=== PATIENT | female | born 1995 | race African-American/Black ===

== ENCOUNTER 2019-03-09 15:52 | Emergency (ER) | payer OTHER ==
[~2019-03-09] VITALS: Ht 160 cm; Wt 59.0 kg
[2019-03-09 16:00] VITALS: BP 105/72
--- NOTE | 2019-03-09 16:08 | PHYS DOC ---
Adult General Chief Complaint Chief Complaint: FOOT INJURY PAIN HPI HPI Patient is a 24-year-old female who scraped the top of her left foot going up some stairs yesterday. She states today she were shoes and the areas little more painful with some surrounding redness. She's been using triple antibiotic cream on it since the time of the injury. No other injuries.[] Review of Systems Review of Systems Constitutional: Denies fever or chills [] Eyes: Denies change in visual acuity, redness, or eye pain [] HENT: Denies nasal congestion or sore throat [] Respiratory: Denies cough or shortness of breath [] Cardiovascular: No additional information not addressed in HPI [] GI: Denies abdominal pain, nausea, vomiting, bloody stools or diarrhea [] : Denies dysuria or hematuria [] Musculoskeletal: Denies back pain or joint pain [] Integument: Abrasion left foot[] Neurologic: Denies headache, focal weakness or sensory changes [] Endocrine: Denies polyuria or polydipsia [] All other systems were reviewed and found to be within normal limits, except as documented in this note. Allergies Allergies Allergies Coded Allergies Type Severity Reaction Last Updated Verified morphine Allergy Unknown 03/09/19 Yes Physical Exam Physical Exam Constitutional: Well developed, well nourished, no acute distress, non-toxic appearance. [] Neck: Normal range of motion, no tenderness, supple, no stridor. [] Cardiovascular:Heart rate regular rhythm, no murmur [] Lungs & Thorax: Bilateral breath sounds clear to auscultation [] Abdomen: Bowel sounds normal, soft, no tenderness, no masses, no pulsatile masses. [] Skin: 2 small abrasions dorsum left foot. [] [] Extremities: No tenderness, no cyanosis, no clubbing, ROM intact, no edema. [] Neurologic: Alert and oriented X 3, normal motor function, normal sensory function, no focal deficits noted. [] Psychologic: Affect normal, judgement normal, mood normal. [] EKG EKG [] Radiology/Procedures Radiology/Procedures [] Course & Med Decision Making Course & Med Decision Making Pertinent Labs and Imaging studies reviewed. (See chart for details) [] Dragon Disclaimer Dragon Disclaimer This electronic medical record was generated, in whole or in part, using a voice recognition dictation system. Departure Departure: Impression: Primary Impression: Abrasion, left foot, initial encounter Disposition: HOME, SELF-CARE Condition: STABLE Referrals: PCP,NO (PCP) Patient Instructions: Abrasions Additional Instructions: Continue to use triple antibiotic ointment as you have been. NICHOL WETZEL DO Mar 09, 2019 16:08
== END 2019-03-09 16:15 | disposition home or self-care (01) ==
LOC: ER 15:53
DX: S90.812A Abrasion, left foot, initial encounter (principal); Z88.5 Allergy status to narcotic agent; X58.XXXA Exposure to other specified factors, initial encounter; Y93.89 Activity, other specified; Y92.89 Other specified places as the place of occurrence of the external cause; Y99.8 Other external cause status
CPT/HCPCS: 99281

== ENCOUNTER 2019-03-19 15:49 | Emergency (ER) | payer SELFPAY ==
[~2019-03-19] VITALS: Ht 160 cm; Wt 55.3 kg
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
[2019-03-19 17:29] VITALS: BP 110/74
[2019-03-19] MEDS ORDERED: CEPH-264 PO (17:36)
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
== END 2019-03-19 17:55 | disposition home or self-care (01) ==
LOC: ER 15:49 → EEVIPCON 15:49 → ER 17:55
DX: S61.211A Laceration without foreign body of left index finger without damage to nail, initial encounter (principal); S40.011A Contusion of right shoulder, initial encounter; S80.212A Abrasion, left knee, initial encounter; Y04.0XXA Assault by unarmed brawl or fight, initial encounter; Y93.89 Activity, other specified; Y92.89 Other specified places as the place of occurrence of the external cause; Y99.8 Other external cause status
CPT/HCPCS: 73030; 73140; 99284

== ENCOUNTER 2019-05-11 09:01 | Emergency (ER) | payer SELFPAY ==
[~2019-05-11] VITALS: Ht 160 cm; Wt 50.8 kg
[~2019-05-11 09:01] MED LIST: CEPH-264 PO
[2019-05-11 09:12] VITALS: BP 106/82
[2019-05-11] MEDS ORDERED: ONDANSETRON 4MG ODT 4TABLET STARTPACK. PO ONE (09:43)
[2019-05-11] MEDS ORDERED: ONDANSETRON ODT 4 MG TAB.RAPDIS PO ONE (09:45)
[2019-05-11] MEDS ORDERED: AZITHROMYCIN 250 MG TABLET. PO ONE (09:45)
[2019-05-11] MEDS ORDERED: cefTRIAXone IM 250 MG VIAL IM ONE (09:45)
[2019-05-11] MEDS ORDERED: PHEN-318 PO (09:48)
[2019-05-11] MEDS ORDERED: CEPH-264 PO (09:48)
--- NOTE | 2019-05-11 09:49 | PHYS DOC ---
Past History Past Medical History: No Pertinent History Past Surgical History: Other Additional Past Surgical Histo: OVARIAN CYST REMOVAL, D&C Smoking: Cigarettes Alcohol Use: None Drug Use: None Adult General Chief Complaint Chief Complaint: PAIN ON URINATION HPI HPI Patient is a 24-year-old female presents with dysuria for the past several days. Increased urgency and frequency. She normally treats similar symptoms with cutting soda from her diet. She has tried this without any improvement. She notes some low back pain. No fever. No sidedness to the low back pain. No nausea or vomiting. Symptoms are moderate in intensity. She also reports that her partner was recently diagnosed with chlamydia and she has not had any treatment herself[] Review of Systems Review of Systems Constitutional: Denies fever or chills [] Eyes: Denies change in visual acuity, redness, or eye pain [] HENT: Denies nasal congestion or sore throat [] Respiratory: Denies cough or shortness of breath [] Cardiovascular: No chest pain or palpitations[] GI: Denies abdominal pain, nausea, vomiting, bloody stools or diarrhea [] : See history of present illness[] Musculoskeletal: Denies back pain or joint pain [] Integument: Denies rash or skin lesions [] Neurologic: Denies headache, focal weakness or sensory changes [] Endocrine: Denies polyuria or polydipsia [] All other systems were reviewed and found to be within normal limits, except as documented in this note. Current Medications Current Medications Current Medications Medications (Trade) Dose Ordered Sig/Toñito Start Time Stop Time Status Last Admin Dose Admin Azithromycin (Zithromax) 1,000 mg 1X ONCE 05/11/19 09:45 05/11/19 09:46 UNV Ceftriaxone Sodium (Rocephin Im) 250 mg 1X ONCE 05/11/19 09:45 05/11/19 09:46 UNV Ondansetron HCl (Zofran Odt) 4 mg 1X ONCE 05/11/19 09:45 05/11/19 09:46 UNV Allergies Allergies Allergies Coded Allergies Type Severity Reaction Last Updated Verified morphine Allergy Unknown 03/09/19 Yes Physical Exam Physical Exam Constitutional: Well developed, well nourished, no acute distress, non-toxic appearance. [] HENT: Normocephalic, atraumatic, bilateral external ears normal, oropharynx moist, no oral exudates, nose normal. [] Eyes: PERRLA, EOMI, conjunctiva normal, no discharge. [] Neck: Normal range of motion, no tenderness, supple, no stridor. [] Cardiovascular:Heart rate regular rhythm, no murmur [] Lungs & Thorax: Bilateral breath sounds clear to auscultation [] Abdomen: Bowel sounds normal, soft, no tenderness, no masses, no pulsatile masses. [] Skin: Warm, dry, no erythema, no rash. [] Back: No tenderness, no CVA tenderness. [] Extremities: No tenderness, no cyanosis, no clubbing, ROM intact, no edema. [] Neurologic: Alert and oriented X 3, normal motor function, normal sensory function, no focal deficits noted. [] Psychologic: Affect normal, judgement normal, mood normal. [] Current Patient Data Vital Signs Vital Signs Date Time Temp Pulse Resp B/P (MAP) Pulse Ox O2 Delivery O2 Flow Rate FiO2 05/11/19 09:12 97.8 107 16 99 Room Air EKG EKG [] Radiology/Procedures Radiology/Procedures [] Course & Med Decision Making Course & Med Decision Making Pertinent Labs and Imaging studies reviewed. (See chart for details) ED course: Patient arrived, was placed in bed, and tolerated exam well. She was given antibiotics to cover further reported chlamydia as well as covering for gonorrhea. Findings and plan were discussed with the patient. She voiced understanding. All questions were answered. She was discharged in improved condition. Medical decision making: There is no evidence of pyelonephritis or systemic toxicity. She is being covered for reported chlamydia exposure. She will also be treated for urinary tract infection.[] Dragon Disclaimer Dragon Disclaimer This electronic medical record was generated, in whole or in part, using a voice recognition dictation system. Departure Departure: Impression: Primary Impression: Urinary tract infection Disposition: HOME, SELF-CARE Condition: IMPROVED Referrals: PCP,SAVANAH (PCP) Patient Instructions: Urinary Tract Infection Additional Instructions: Follow-up with your regular doctor in 2 days. If you do not have regular doctor a list of local clinics we provided. Drink plenty of fluid. Return to the ER if worsening pain, fever of more than 101, or any other concerns Scripts Phenazopyridine Hcl (PYRIDIUM) 200 Mg Tablet 200 MG PO TID for dysurea for 2 Days, #6 TAB Prov: NOHELIA ROJAS DO 05/11/19 Cephalexin (KEFLEX) 500 Mg Capsule 500 MG PO TID for UTI for 10 Days, #30 CAP Prov: NOHELIA ROJAS DO 05/11/19 Problem Qualifiers Primary Impression: Urinary tract infection Urinary tract infection type: site unspecified Hematuria presence: with hematuria Qualified Codes: N39.0 - Urinary tract infection, site not specified; R31.9 - Hematuria, unspecified NOHELIA ROJAS DO May 11, 2019 09:49
[2019-05-11 10:11] LABS: BILIRUBIN,URINE NEG (NEG); CLARITY,URINE CLOUDY; COLOR,URINE YELLOW; GLUCOSE,URINE NEG (NEG); NITRITE,URINE NEG (NEG); UROBILINOGEN,URINE 0.2 mg/dL (0.2 mg/dL)
[2019-05-11 10:12] LABS: BACTERIA,URINE MANY /HPF (0-FEW); RBC,URINE >40 /HPF (0-2); WBC,URINE >40 /HPF (0-4)
[2019-05-11 10:13] LABS: SQUAMOUS EPITHELIAL CELL,UR MOD /LPF
== END 2019-05-11 09:56 | disposition home or self-care (01) ==
LOC: ER 09:01
DX: N39.0 Urinary tract infection, site not specified (principal); R31.9 Hematuria, unspecified; F17.210 Nicotine dependence, cigarettes, uncomplicated; Z88.5 Allergy status to narcotic agent
CPT/HCPCS: 36415; 81001; 81025; 87086; 87491; 87591; 96372; 99284; J0456; J0696; Q0162; 87186

== ENCOUNTER 2019-09-11 10:21 | Emergency (ER) | payer SELFPAY ==
[~2019-09-11] VITALS: Ht 160 cm; Wt 51.0 kg
[~2019-09-11 10:21] MED LIST changes: +PHEN-318 PO
[2019-09-11 10:35] VITALS: BP 105/49
[2019-09-11] MEDS ORDERED: HYOS0.1265 SL (11:16)
[2019-09-11] MEDS ORDERED: ONDA4TAB12 PO (11:16)
--- NOTE | 2019-09-11 11:16 | PHYS DOC ---
Past History Past Medical History: No Pertinent History Past Surgical History: Tonsillectomy, Other Additional Past Surgical Histo: OVARIAN CYST REMOVAL, D&C Smoking: Cigarettes Alcohol Use: Occasionally Drug Use: None Adult General Chief Complaint Chief Complaint: COUGH HPI HPI Patient is a 24-year-old female who presents with nausea and vomiting that began yesterday. She reports that her son had diarrhea and vomiting earlier yesterday and she began vomiting last night. She vomited 5 times overnight and once this morning. She denies fever, shortness of breath, or diarrhea. She reports chills. Her daughter did have influenza B and was not treated with Tamiflu. She also reports she had upper respiratory symptoms including cough and congestion a few days ago, but these symptoms have improved. Review of Systems Review of Systems Constitutional: Denies fever, reports chills Eyes: Denies redness or eye pain HENT: Reports nasal congestion; denies sore throat Respiratory: Reports cough; denies shortness of breath Cardiovascular: Reports chest pain; denies palpitations GI: Reports nausea, vomiting, and diffuse abdominal tenderness : Denies dysuria or hematuria Musculoskeletal: Denies joint pain, reports low back pain Integument: Denies rash or skin lesions Neurologic: Denies headache, focal weakness or sensory changes Complete systems were reviewed and found to be within normal limits, except as documented in this note. Family History Family History No pertinent Family history. Allergies Allergies Allergies Coded Allergies Type Severity Reaction Last Updated Verified morphine Allergy Unknown 03/09/19 Yes Physical Exam Physical Exam Constitutional: Well developed, well nourished, no acute distress, non-toxic appearance HENT: Normocephalic, atraumatic, oropharyngeal mucous membranes dry Eyes: Conjunctiva normal, no discharge Neck: Normal range of motion, supple Cardiovascular: Heart rate normal, regular rhythm Lungs & Thorax: Bilateral breath sounds clear to auscultation, no wheezing Abdomen: Soft, no guarding or rebound Skin: Warm, dry, no erythema, no rash Extremities: No tenderness, ROM intact, no edema Neurologic: Alert and oriented X 3, normal motor function, normal sensory function, no focal deficits noted Psychologic: Affect normal, judgement normal Current Patient Data Vital Signs Vital Signs Date Time Temp Pulse Resp B/P (MAP) Pulse Ox O2 Delivery O2 Flow Rate FiO2 09/11/19 10:35 98.6 134 16 105/49 (67) 96 Room Air EKG EKG [] Radiology/Procedures Radiology/Procedures [] Course & Med Decision Making Course & Med Decision Making Pertinent Labs and Imaging studies reviewed. (See chart for details) Patient is a 24-year-old female who presented with nausea and vomiting that began yesterday presumed to be due to viral gastroenteritis. She denied fever, shortness of breath, or diarrhea. URI symptoms resolved. Patient was instructed to begin with a clear liquid diet and remain hydrated and slowly add other foods as tolerated. Patient instructed to take Zofran if needed for nausea. Patient stable for discharge with outpatient follow-up with PCP. Discussed findings and plan with patient and family, who acknowledge understanding and agreement. Dragon Disclaimer Dragon Disclaimer This electronic medical record was generated, in whole or in part, using a voice recognition dictation system. Departure Departure: Impression: Primary Impression: Nausea & vomiting Disposition: 01 HOME, SELF-CARE Condition: STABLE Referrals: PCP,NO (PCP) Patient Instructions: Diet for Diarrhea, Adult, Nausea and Vomiting, Easy-to- Read, Viral Gastroenteritis, [id number] Scripts Hyoscyamine Sulfate (LEVSIN-SL) 0.125 Mg Tab.subl 0.125 MG SL Q4-6HRS PRN for PAIN, #14 TAB Prov: VANESSA TOUSSAINT DO 09/11/19 Ondansetron (ONDANSETRON ODT) 4 Mg Tab.rapdis 1 TAB PO PRN Q6-8HRS PRN for NAUSEA, #16 TAB Prov: VANESSA TOUSSAINT DO 09/11/19 Problem Qualifiers Primary Impression: Nausea & vomiting Vomiting type: unspecified Vomiting Intractability: non-intractable Qualified Codes: R11.2 - Nausea with vomiting, unspecified VANESSA TOUSSAINT DO Sep 11, 2019 11:16
== END 2019-09-11 11:33 | disposition home or self-care (01) ==
LOC: ER 10:21
DX: R11.2 Nausea with vomiting, unspecified (principal); F17.210 Nicotine dependence, cigarettes, uncomplicated; Z88.5 Allergy status to narcotic agent; Z90.89 Acquired absence of other organs
CPT/HCPCS: 99283

== ENCOUNTER 2020-01-19 16:00 | Emergency (ER) | payer SELFPAY ==
[~2020-01-19] VITALS: Ht 160 cm; Wt 51.0 kg
[~2020-01-19 16:00] MED LIST changes: +HYOS0.1265 SL; +ONDA4TAB12 PO
[2020-01-19] MEDS ORDERED: NAPR500T8 PO (16:28)
--- NOTE | 2020-01-19 16:29 | PHYS DOC ---
Past History Past Medical History: No Pertinent History Past Surgical History: Tonsillectomy, Other Additional Past Surgical Histo: OVARIAN CYST REMOVAL, D&C Smoking: Cigarettes Alcohol Use: Occasionally Drug Use: None General Adult HPI: HPI: Patient is a 25-year-old otherwise healthy female G2, P2 who presents with a se veral month history of irregular bleeding and cramping. She states she is having some vaginal bleeding along with some lower abdominal cramping. She denies any dysuria or gross hematuria. She denies any fever chills or sweats. She has a history of ovarian cyst in the past. She was on the Depakote shot and stopped in July 2019 and has not been on any control pills since. She states her irregular periods started shortly after she stopped her control. [] Review of Systems: Review of Systems: Constitutional: Denies fever or chills Eyes: Denies change in visual acuity HENT: Denies nasal congestion or sore throat Respiratory: Denies cough or shortness of breath Cardiovascular: Denies chest pain or edema GI: Denies abdominal pain, nausea, vomiting, bloody stools or diarrhea : Per HPI Musculoskeletal: Denies back pain or joint pain Integument: Denies rash Neurologic: Denies headache, focal weakness or sensory changes Endocrine: Denies polyuria or polydipsia Lymphatic: Denies swollen glands Psychiatric: Denies depression or anxiety Heart Score: Risk Factors: Risk Factors: DM, Current or recent (<one month) smoker, HTN, HLP, family history of CAD, obesity. Risk Scores: Score 0 - 3: 2.5% MACE over next 6 weeks - Discharge Home Score 4 - 6: 20.3% MACE over next 6 weeks - Admit for Clinical Observation Score 7 - 10: 72.7% MACE over next 6 weeks - Early Invasive Strategies Allergies: Allergies: Allergies Coded Allergies Type Severity Reaction Last Updated Verified morphine Allergy Unknown 03/09/19 Yes Physical Exam: PE: Constitutional: Well developed, well nourished, no acute distress, non-toxic appearance. [] HENT: Normocephalic, atraumatic, bilateral external ears normal, oropharynx moist, no oral exudates, nose normal. [] Eyes: PERRLA, EOMI, conjunctiva normal, no discharge. [] Neck: Normal range of motion, no tenderness, supple, no stridor. [] Cardiovascular:Heart rate regular rhythm, no murmur [] Lungs & Thorax: Bilateral breath sounds clear to auscultation [] Abdomen: Bowel sounds normal, soft, no tenderness, no masses, no pulsatile masses. [] Skin: Warm, dry, no erythema, no rash. [] Back: No tenderness, no CVA tenderness. [] Extremities: No tenderness, no cyanosis, no clubbing, ROM intact, no edema. [] Neurologic: Alert and oriented X 3, normal motor function, normal sensory function, no focal deficits noted. [] Psychologic: Affect normal, judgement normal, mood normal. [] Current Patient Data: Labs: Laboratory Tests Test 01/19/20 16:23 POC Urine HCG, Qualitative hcg negative (Negative) EKG: EKG: [] Radiology/Procedures: Radiology/Procedures: [] Course & Med Decision Making: Course & Med Decision Making Pertinent Labs and Imaging studies reviewed. (See chart for details) [] Dragon Disclaimer: Dragon Disclaimer: This electronic medical record was generated, in whole or in part, using a voice recognition dictation system. Departure Departure: Impression: Primary Impression: Dysfunctional uterine bleeding Disposition: HOME/RESIDENCE PRIOR TO ADM Condition: STABLE Referrals: PCP,SAVANAH (PCP) Patient Instructions: Uterine Bleeding, Dysfunctional Additional Instructions: Follow with your [facility] doctor in the next week for recheck. Scripts Naproxen (NAPROXEN) 500 Mg Tablet.dr 1 TAB PO Q12HR PRN for PAIN, #60 TAB 1 Refill Prov: NICHOL WETZEL DO 01/19/20 Justification of Admission: Justification of Admission: Justification of Admission Dx: No NICHOL WETZEL DO Jan 19, 2020 16:29
[2020-01-19 16:30] VITALS: BP 121/68
== END 2020-01-19 16:42 | disposition home or self-care (01) ==
LOC: ER 16:00
DX: N93.8 Other specified abnormal uterine and vaginal bleeding (principal); F17.210 Nicotine dependence, cigarettes, uncomplicated; Z88.5 Allergy status to narcotic agent
CPT/HCPCS: 81025; 99282

== ENCOUNTER 2020-04-19 17:44 | Emergency (ER) | payer SELFPAY ==
[~2020-04-19] VITALS: Ht 160 cm; Wt 50.2 kg
[~2020-04-19 17:44] MED LIST changes: +NAPR500T8 PO
[2020-04-19] MEDS ORDERED: IV RINGERS SOLUTION,LACTATED 1,000 ML IV SCH (17:54)
--- NOTE | 2020-04-19 17:54 | PHYS DOC ---
Past History Past Medical History: No Pertinent History, Ovarian Cyst, STD, Other Past Medical History Dysfunctional uterine bleeding, history of gonorrhea and chlamydia,-treated, 2, 2 vaginal births without complications, rectal sex, no longer on control practices withdrawal method for control Past Surgical History: Tonsillectomy, Other Additional Past Surgical Histo: OVARIAN CYST REMOVAL, D&C-left 2012 Smoking: Cigarettes Alcohol Use: Occasionally Drug Use: Marijuana General Adult HPI: HPI: "...I am having vaginal bleeding.. it has not stopped.. I got cramping..".." sometimes crampy pain is so severe I cannot stand it.." Patient is a 25 year old female who presents with vaginal bleeding with cramping. The cramping pain bleeding has been 4 weeks at times it seems it is starting to quit but then starts back up again. Does have a long history of dysfunctional uterine bleeding. Has had increased problems since removal of Depo-Provera in 07/25. Patient seen in February 2020 for similar complaints. Patient does have a history of ovarian cyst. Did at one time require a oophorectomy on left due to a large ovarian cyst in 2012 and a D&C.. Patient denies any traumatic sex or vibrators or dildo's. Patient's had 7-10 lifetime sex partners. There is some concern she may have an STD because current partner had an affair for approximately 3 months. Patient denies any fever or chills. Patient denies any dysuria. Patient denies any recent travel outside the [place] area. Patient denies any history immunosuppression. Patient denies any IV drug use. Patient does smoke marijuana and tobacco. Patient does have occasional alcohol. Patient has not taking NSAIDs excessively. Takes no other meds which could cause coagulopathy. There is no family history of coagulopathy. Review of Systems: Review of Systems: Constitutional: Denies fever or chills Eyes: Denies change in visual acuity HENT: Denies nasal congestion or sore throat Respiratory: Denies cough or shortness of breath Cardiovascular: Denies chest pain or edema GI: Denies upper abdominal pain, nausea, vomiting, bloody stools or diarrhea. Complains of lower pelvic cramping and dysfunctional uterine bleeding : Denies dysuria Musculoskeletal: Denies back pain or joint pain Integument: Denies rash Neurologic: Denies headache, focal weakness or sensory changes Endocrine: Denies polyuria or polydipsia Lymphatic: Denies swollen glands Psychiatric: Denies depression or anxiety Heart Score: Risk Factors: Risk Factors: DM, Current or recent (<one month) smoker, HTN, HLP, family history of CAD, obesity. Risk Scores: Score 0 - 3: 2.5% MACE over next 6 weeks - Discharge Home Score 4 - 6: 20.3% MACE over next 6 weeks - Admit for Clinical Observation Score 7 - 10: 72.7% MACE over next 6 weeks - Early Invasive Strategies Family History: Family History: Noncontributory to presentation Current Medications: Current Meds: See nursing for home medications Allergies: Allergies: Allergies Coded Allergies Type Severity Reaction Last Updated Verified morphine Allergy Unknown 03/09/19 Yes Physical Exam: PE: Constitutional: Well developed, well nourished, moderate acute distress, non- toxic appearance. [] HENT: Normocephalic, atraumatic, bilateral external ears normal, oropharynx moist, no oral exudates, nose normal. [] Eyes: PERRLA, EOMI, conjunctiva normal, no discharge. [] Neck: Normal range of motion, no tenderness, supple, no stridor. [] Cardiovascular:Heart rate regular rhythm, no murmur [] Lungs & Thorax: Bilateral breath sounds equal with scattered wheezes on auscultation [] Abdomen: Bowel sounds normal, soft, tenderness periumbilical, minimal rebound tenderness, no masses, no pulsatile masses. Old scars on left mid abdomen from oophorectomy/cyst removal 2012. Vaginal exam no external lesions appreciated. There is some spotting from os. Minimal cervical motion discomfort. Adnexal no obvious mass palpated or localization of pain. There is hard stool in the rectal vault. No appreciable rectal bleeding. Small hemorrhoid tag. Skin: Warm, dry, no erythema, no rash. [] Back: No tenderness, no CVA tenderness. [] Extremities: No tenderness, no cyanosis, no clubbing, ROM intact, no edema. No significance psoas sign. Neurologic: Alert and oriented X 3, normal motor function, normal sensory function, no focal deficits noted. [] Psychologic: Affect anxious, judgement normal, mood normal. [] EKG: EKG: [] Radiology/Procedures: Radiology/Procedures: [][address] [address] IMAGING REPORT Signed PATIENT: TOMER IBARRA ACCOUNT: [id number] : 1995 LOCATION: ER AGE: 25 SEX: F EXAM STATUS: REG ER ORD. PHYSICIAN: GELY MOLINA MD REASON: pain, irregular vaginal bleeding & pelvic pain x 3 weeks PROCEDURE: ACUTE ABDOMEN SERIES Exam: Acute abdominal series INDICATION: Pain, regular vaginal bleeding pelvic pain for 3 weeks TECHNIQUE: Frontal view of the chest with upright and supine views of the abdomen Comparisons: None FINDINGS: The cardiomediastinal silhouette and pulmonary vessels are within normal limits. The lung and pleural spaces are clear. Air and stool are noted throughout the colon to level the rectum in a nonobstructive bowel gas pattern. No suspicious masses or calcifications. Visualized osseous structures are unremarkable. IMPRESSION: 1. No acute cardiopulmonary process. 2. Nonobstructive bowel gas pattern. Electronically signed by: Gogo Godinez MD (04/19/2020 7:24 PM) [id number] DICTATED AND SIGNED BY: GOGO GODINEZ MD DATE: 04/19/201923 CC: GELY MOLINA MD; PCP,NO ~ Course & Med Decision Making: Course & Med Decision Making Pertinent Labs and Imaging studies reviewed. (See chart for details) Patient stay on clear fluid diet only for the next 2 days. Push fruit juices popsicles Jell-O etc. Tylenol and ibuprofen for pain. Taken no solids or milk products for 2 days. Do not advance diet if still having abdomen pain.. Follow-up pending cultures. Follow-up with primary care or [facility]. Consider returning to control. Encourage patient to stop smoking. Smoking with hormone control puts her at higher risk for DVTs and pulmonary embolisms. Impression": 1. Abdomen pain 2. Dysfunctional uterine bleeding 3. History of ovarian cyst 4. Tobacco marijuana use 5. [] Dragon Disclaimer: Dragon Disclaimer: This electronic medical record was generated, in whole or in part, using a voice recognition dictation system. Departure Departure: Disposition: HOME/RESIDENCE PRIOR TO ADM Condition: STABLE Referrals: PCPSAVANAH (PCP) Justification of Admission: Justification of Admission: Justification of Admission Dx: N/A Dragon Disclaimer This chart was dictated in whole or in part using Voice Recognition software in a busy, high-work load, and often noisy Emergency Department environment. It may contain unintended and wholly unrecognized errors or omissions. GELY MOLINA MD Apr 19, 2020 17:54
[2020-04-19] MEDS ORDERED: ONDANSETRON PF 4 MG/2 ML VIAL. IVP ONE (18:00)
[2020-04-19 18:44] LABS: BARBITURATES NEG (NEG); BENZODIAZEPINES NEG (NEG); CANNABINOIDS POS (NEG); COCAINE NEG (NEG); METHADONE NEG (NEG); OPIATES NEG (NEG); PHENCYCLIDINE NEG (NEG)
[2020-04-19] MEDS ORDERED: KETOROLAC 30 MG/ML VIAL. IVP ONE (18:45)
[2020-04-19 18:49] LABS: BASO % 1 % (0-3); EOS # 0.3 x10^3/uL (0.0-0.7); EOS % 4 % (0-3); HEMATOCRIT 42.7 % (36.0-47.0); HEMOGLOBIN 14.8 g/dL (12.0-15.5); LYMPH # 2.7 x10^3/uL (1.0-4.8); LYMPH % 37 % (24-48); MEAN CORPUSCULAR HEMOGLOBIN 32 pg (25-35); MEAN CORPUSCULAR HGB CONC 35 g/dL (31-37); MEAN CORPUSCULAR VOLUME 94 fL (79-100); MONO # 0.4 x10^3/uL (0.0-1.1); MONO % 6 % (0-9); NEUT # 3.8 x10^3uL (1.8-7.7); NEUT % 52 % (31-73); PLATELET COUNT 220 x10^3/uL (140-400); RED BLOOD COUNT 4.56 x10^6/uL (3.50-5.40); RED CELL DISTRIBUTION WIDTH 12.6 % (11.5-14.5); WHITE BLOOD COUNT 7.2 x10^3/uL (4.0-11.0)
[2020-04-19 18:53] LABS: AMPHETAMINE/METHAMPHETAMINE NEG (NEG)
[2020-04-19 18:58] LABS: CREATININE 0.9 mg/dL (0.6-1.0); GFR 93.9; POTASSIUM 3.7 mmol/L (3.5-5.1)
[2020-04-19] MEDS ORDERED: MAGNESIUM HYDROXIDE 2,400 MG/30 ML ORAL.SUSP. PO ONE (19:00)
[2020-04-19 19:03] LABS: DIRECT BILIRUBIN 0.2 mg/dL (0.0-0.2); TOTAL BILIRUBIN 0.3 mg/dL (0.2-1.0); TOTAL PROTEIN 7.4 g/dL (6.4-8.2)
[2020-04-19 19:13] LABS: CLARITY,URINE HAZY; COLOR,URINE YELLOW
[2020-04-19 19:14] LABS: BILIRUBIN,URINE NEG (NEG); GLUCOSE,URINE NEG (NEG); NITRITE,URINE NEG (NEG); UROBILINOGEN,URINE 0.2 mg/dL (0.2 mg/dL)
[2020-04-19 19:15] LABS: BACTERIA,URINE FEW /HPF (0-FEW); RBC,URINE 0 /HPF (0-2); SQUAMOUS EPITHELIAL CELL,UR FEW /LPF
--- NOTE | 2020-04-19 19:27 | RAD ---
Exam: Acute abdominal series INDICATION: Pain, regular vaginal bleeding pelvic pain for 3 weeks TECHNIQUE: Frontal view of the chest with upright and supine views of the abdomen Comparisons: None FINDINGS: The cardiomediastinal silhouette and pulmonary vessels are within normal limits. The lung and pleural spaces are clear. Air and stool are noted throughout the colon to level the rectum in a nonobstructive bowel gas pattern. No suspicious masses or calcifications. Visualized osseous structures are unremarkable. IMPRESSION: 1. No acute cardiopulmonary process. 2. Nonobstructive bowel gas pattern. Electronically signed by: Gogo Doss MD (04/19/2020 7:24 PM) [id number]
[2020-04-19 22:10] VITALS: BP 104/64
[2020-04-21 20:07] LABS: CHLAMYDIA PROBE Negative (Negative)
== END 2020-04-19 22:10 | disposition home or self-care (01) ==
LOC: ER 17:44
DX: N93.8 Other specified abnormal uterine and vaginal bleeding (principal); F17.210 Nicotine dependence, cigarettes, uncomplicated; F12.10 Cannabis abuse, uncomplicated; Z88.5 Allergy status to narcotic agent
CPT/HCPCS: 74022; 80048; 80076; 80307; 81001; 81025; 83690; 84702; 85025; 85610; 85730; 86592; 86703; 86705; 86709; 86803; 87086; 87340; 87491; 87591; 96361; 96374; 96375; 99285; J1885; J2405; J7120; Q0111; 36415

== ENCOUNTER 2020-05-27 20:11 | Emergency (ER) | payer SELFPAY ==
[~2020-05-27] VITALS: Ht 160 cm; Wt 50.2 kg
[2020-05-27 20:30] VITALS: BP 122/69
--- NOTE | 2020-05-27 20:41 | PHYS DOC ---
Past History Past Medical History: No Pertinent History, Ovarian Cyst, STD, Other Additional Past Medical Histor: MISCARRIAGE Past Surgical History: Other Additional Past Surgical Histo: OVARIAN CYST REMOVAL, D&C-left 2012 Smoking: Cigarettes Alcohol Use: Occasionally Drug Use: Marijuana Adult General Chief Complaint Chief Complaint: SKIN PROBLEM HPI HPI Patient is a 25-year-old female who presents with skin problems. Patient reports onset was 2 days ago without any known inciting event and/or trauma. Denies changing any medications, no soaps, no other concerning allergen exposure that she is aware of. She does admit to trying new fragrant spray. Patient reports development of a generalized pruritic erythematous rash that is located on torso and extremities, it spares face and palms and soles. Denies any recent febrile illness but admits she was seen at our facility yesterday and treated for trichomonas. She took metronidazole prior to discharge and required no further treatment. Denies any airway involvement, no history of anaphylaxis Review of Systems Review of Systems Fourteen body systems of review of systems have been reviewed. See HPI for pertinent positives and negative responses, other betancourt all other systems are negative, non-pertinent or non-contributory Allergies Allergies Allergies Coded Allergies Type Severity Reaction Last Updated Verified morphine Allergy Unknown 03/09/19 Yes Physical Exam Physical Exam Constitutional: Well developed, well nourished, no acute distress, non-toxic appearance. HENT: Normocephalic, atraumatic, bilateral external ears normal, oropharynx moist, no oral exudates, nose normal. Eyes: PERRLA, EOMI, conjunctiva normal, no discharge. Neck: Normal range of motion, no tenderness, supple, no stridor. Cardiovascular: Heart rate regular, sinus rhythm, no murmurs rubs or gallops Lungs & Thorax: Bilateral breath sounds clear to auscultation Abdomen: Bowel sounds normal, soft, no tenderness, no masses, no pulsatile masses. Nonsurgical abdomen, no peritoneal signs Skin: Warm, dry, no erythema, no lesions but generalized rash located on all 4 extremities and torso sparing palms and soles. This is pruritic, red, mildly raised without any palpable pustules or expressible exudate Back: No tenderness, no CVA tenderness. Extremities: No tenderness, no cyanosis, no clubbing, ROM intact, no edema. Neurologic: Alert and oriented X 3, grossly normal motor & sensory function, no focal deficits noted. Psychologic: Affect normal, judgement normal, mood normal. Current Patient Data Vital Signs Vital Signs Date Time Temp Pulse Resp B/P (MAP) Pulse Ox O2 Delivery O2 Flow Rate FiO2 05/27/20 20:30 97.9 106 14 122/69 (86) 100 Room Air EKG EKG [] Radiology/Procedures Radiology/Procedures [] Heart Score Risk Factors: Risk Factors: DM, Current or recent (<one month) smoker, HTN, HLP, family history of CAD, obesity. Risk Scores: Risk Factors: DM, Current or recent (<one month) smoker, HTN, HLP, family history of CAD, obesity. Course & Med Decision Making Course & Med Decision Making Well-appearing nontoxic patient seen on arrival ABCs nonconcerning Comprehensive history and physical exam obtained, no obvious emergent and/or surgical findings Discussed most likely diagnosis of nonspecific dermatitis that is likely contact in nature. I disclosed without abnormal vitals or any other concerning signs or symptoms, there is little indication for further diagnostic work-up in ER setting I gave patient steroids, Benadryl, H2 irina with significant relief in symptomology. I advised patient to follow-up with primary care physician in upcoming 7 days to ensure symptomatic resolution and consider need for allergy testing Strict return precautions were given with good understanding by patient, all questions and concerns addressed prior to ER departure in stable condition with continued supportive care advised Davidson Disclaimer Davidson Disclaimer This electronic medical record was generated, in whole or in part, using a voice recognition dictation system. Departure Departure: Impression: Primary Impression: Dermatitis Disposition: 01 DC HOME SELF CARE/HOMELESS Condition: STABLE Referrals: PCP,NO (PCP) Patient Instructions: Contact Dermatitis Additional Instructions: As discussed prior to ER departure, please use attached sheet to call local primary care physicians to establish care in upcoming 7 days Please continue supportive care and avoid any potential allergens such as any new fragrances or soaps. If any concerning signs or symptoms present themselves prior to establishing car e in outpatient setting feel free to return to our ER for repeat examination It was a pleasure to take care of you and I wish you a speedy recovery! LOUISA BALL DO May 27, 2020 20:40
[2020-05-27] MEDS ORDERED: diphenhydrAMINE HCL 25 MG CAPSULE PO ONE (21:15)
[2020-05-27] MEDS ORDERED: DEXAMETHASONE SOD PHOS 10 MG/ML VIAL. PO ONE (21:15)
[2020-05-27] MEDS ORDERED: PANTOPRAZOLE 40 MG TABLET. PO ONE (21:15)
== END 2020-05-27 20:44 | disposition home or self-care (01) ==
LOC: ER 20:11
DX: L30.9 Dermatitis, unspecified (principal); Z88.5 Allergy status to narcotic agent
CPT/HCPCS: 99284; J1100; Q0163

== ENCOUNTER 2020-10-19 07:50 | Emergency (ER) | payer SELFPAY ==
[~2020-10-19] VITALS: Ht 160 cm; Wt 54.3 kg
--- NOTE | 2020-10-19 08:07 | PHYS DOC ---
Past History Past Medical History: No Pertinent History, Ovarian Cyst, STD, Other Additional Past Medical Histor: MISCARRIAGE Past Surgical History: Other Additional Past Surgical Histo: OVARIAN CYST REMOVAL, D&C-left 2012 Smoking: Cigarettes Alcohol Use: Occasionally Drug Use: Marijuana Adult General HPI HPI Patient is a 25-year-old female presenting for suprapubic cramping. States this was first noticed yesterday after work without any known inciting event or trauma. Nothing known makes better or worse. Patient describes pain as focal cramping without radiation. Denies any prior medical history, is not on any control, states she is trying to get . Reports first day of last menstrual period was September 26 and she is due for her period anytime now. She presents today because she is unsure if this is premenstrual cramping, UTI or fact that she is . She denies any fever, chest pain or shortness of b reath, abdominal pain, bladder or bowel incontinence, vaginal bleeding or discharge Review of Systems Review of Systems Fourteen body systems of review of systems have been reviewed. See HPI for pertinent positives and negative responses, other betancourt all other systems are negative, non-pertinent or non-contributory Allergies Allergies Allergies Coded Allergies Type Severity Reaction Last Updated Verified morphine Allergy Unknown 03/09/19 Yes Physical Exam Physical Exam Constitutional: Well developed, well nourished, no acute distress, non-toxic appearance. HENT: Normocephalic, atraumatic, bilateral external ears normal, oropharynx m oist, no oral exudates, nose normal. Eyes: PERRLA, EOMI, conjunctiva normal, no discharge. Neck: Normal range of motion, no tenderness, supple, no stridor. Cardiovascular: Heart rate regular, sinus rhythm, no murmurs rubs or gallops Lungs & Thorax: Bilateral breath sounds clear to auscultation Abdomen: Bowel sounds normal, soft, mild tenderness to palpation of suprapubic area without guarding or tenderness, no masses, no pulsatile masses. Nonsurgical abdomen, no peritoneal signs Skin: Warm, dry, no erythema, no rash. Back: No tenderness, no CVA tenderness. Extremities: No tenderness, no cyanosis, no clubbing, ROM intact, no edema. Neurologic: Alert and oriented X 3, grossly normal motor & sensory function, no focal deficits noted. Psychologic: Affect normal, judgement normal, mood normal. Current Patient Data Vital Signs Vital Signs Date Time Temp Pulse Resp B/P (MAP) Pulse Ox O2 Delivery O2 Flow Rate FiO2 10/19/20 08:09 97.5 108 16 107/63 (78) 98 Room Air Lab Results Laboratory Tests Test 10/19/20 07:13 10/19/20 07:58 Bedside Urine HCG, Qualitative hcg negative Urine Collection Type Unknown Urine Color Yellow Urine Clarity Cloudy Urine pH 7.0 Urine Specific [place] 1.025 Urine Protein Neg Urine Glucose (UA) Neg mg/dL Urine Ketones (Stick) Neg mg/dL Urine Blood Neg Urine Nitrite Neg Urine Bilirubin Neg Urine Urobilinogen Dipstick 1.0 mg/dL Urine Leukocyte Esterase Neg Urine RBC 0 /HPF Urine WBC 1-4 /HPF Urine Squamous Epithelial Cells Mod /LPF Urine Amorphous Sediment Present /HPF Urine Bacteria 0 /HPF EKG EKG [] Radiology/Procedures Radiology/Procedures [] Heart Score C/O Chest Pain: N/A Risk Factors: Risk Factors: DM, Current or recent (<one month) smoker, HTN, HLP, family history of CAD, obesity. Risk Scores: Risk Factors: DM, Current or recent (<one month) smoker, HTN, HLP, family history of CAD, obesity. Course & Med Decision Making Course & Med Decision Making Afebrile hemodynamically stable patient with grossly nonconcerning history and physical exam Discussed negative test and UA. Discussed most likely diagnosis of premenstrual cramping versus other lower abdominal/pelvic diagnosis I did offer patient pelvic exam but this was declined. I discussed no further ER diagnostic work-up was indicated at this time and advised outpatient follow- up. Advised continued supportive care and NSAID use for as needed pain Strict return precautions were discussed with good understanding by patient, all questions and concerns addressed prior to ER departure and good condition Dragon Disclaimer Dragon Disclaimer This electronic medical record was generated, in whole or in part, using a voice recognition dictation system. Departure Departure: Impression: Primary Impression: Pelvic cramping Disposition: 01 DC HOME SELF CARE/HOMELESS Condition: GOOD Referrals: PCP,NO (PCP) Additional Instructions: You have been evaluated in the Emergency Department today for lower abdominal pain. Your evaluation was not suggestive of any emergent condition requiring m edical intervention at this time. However, some abdominal problems make take more time to appear. Therefore, it is important for you to watch for any new symptoms or worsening of your current condition. Please follow up with your primary care physician as needed. If you do not have a primary doctor, you can call your insurance company to find one. If you do not have insurance, you can go to the finance/registration department for more assistance. Return to the Emergency Department if you experience worsening pain, persistent fevers greater than 100.4, recurrent vomiting, blood in vomit, blood in stool, dark tarry stool, chest pain, difficulty breathing, or any other concerning symptoms. Scripts Ibuprofen (IBUPROFEN) 800 Mg Tablet 1 TAB PO TID for pain for 7 Days, #21 TAB 1 Refill Prov: LOUISA BALL DO 10/19/20 LOUISA BALL DO Oct 19, 2020 08:07
[2020-10-19 08:09] VITALS: BP 107/63
[2020-10-19 08:39] LABS: BACTERIA,URINE 0 /HPF (0-FEW); BILIRUBIN,URINE NEG (NEG); CLARITY,URINE CLOUDY; COLOR,URINE YELLOW; GLUCOSE,URINE NEG (NEG); NITRITE,URINE NEG (NEG); RBC,URINE 0 /HPF (0-2); SQUAMOUS EPITHELIAL CELL,UR MOD /LPF
[2020-10-19 08:40] LABS: AMORPHOUS SEDIMENT,UR PRESENT /HPF
[2020-10-19] MEDS ORDERED: IBUPROFEN 600 MG TABLET. PO ONE (08:45)
[2020-10-19] MEDS ORDERED: IBUP800T19 PO (08:48)
== END 2020-10-19 08:54 | disposition home or self-care (01) ==
LOC: ER 07:50
DX: R10.2 Pelvic and perineal pain (principal); F17.210 Nicotine dependence, cigarettes, uncomplicated; Z88.5 Allergy status to narcotic agent
CPT/HCPCS: 81001; 81025; 99283

== ENCOUNTER 2021-01-11 06:29 | Emergency (ER) | payer SELFPAY ==
[~2021-01-11] VITALS: Ht 160 cm; Wt 54.0 kg
[~2021-01-11 06:29] MED LIST changes: +IBUP800T19 PO
--- NOTE | 2021-01-11 06:59 | PHYS DOC ---
Past History Past Medical History: No Pertinent History, Ovarian Cyst, STD, Other Additional Past Medical Histor: MISCARRIAGE Past Surgical History: Other Additional Past Surgical Histo: OVARIAN CYST REMOVAL, D&C-left 2012 Smoking: Cigarettes Alcohol Use: Occasionally Drug Use: Marijuana General Adult EDM: Chief Complaint: ABDOMINAL PAIN HPI: HPI: 26-year-old female presents with nausea and vomiting. The patient had 2 episodes of vomiting last night. She has not had any diarrhea. She denies fever or chills. She had decreased appetite yesterday but was otherwise feeling fine. No other family members are sick. She denies abdominal pain, urinary frequency, dysuria. She has no other complaints this time. Review of Systems: Review of Systems: Constitutional: Denies fever or chills Eyes: Denies change in visual acuity HENT: Denies nasal congestion or sore throat Respiratory: Denies cough or shortness of breath Cardiovascular: Denies chest pain or edema GI: Nausea, vomiting. Denies abdominal pain, bloody stools or diarrhea : Denies dysuria Musculoskeletal: Denies back pain or joint pain Integument: Denies rash Neurologic: Denies headache, focal weakness or sensory changes Endocrine: Denies polyuria or polydipsia Lymphatic: Denies swollen glands Psychiatric: Denies depression or anxiety Current Medications: Current Meds: Current Medications Medications (Trade) Dose Ordered Sig/Toñito Start Time Stop Time Status Last Admin Dose Admin Ondansetron HCl (Zofran) 4 mg 1X ONCE 01/11/21 07:30 01/11/21 07:31 Sodium Chloride 1,000 ml @ 1,000 mls/hr 1X ONCE 01/11/21 07:30 01/11/21 08:29 Allergies: Allergies: Allergies Coded Allergies Type Severity Reaction Last Updated Verified morphine Allergy Unknown 01/11/21 Yes Physical Exam: PE: Constitutional: Well developed, well nourished, no acute distress, non-toxic appearance. [] HENT: Normocephalic, atraumatic, bilateral external ears normal, oropharynx moist, no oral exudates, nose normal. [] Eyes: PERRLA, EOMI, conjunctiva normal, no discharge. [] Neck: Normal range of motion, no tenderness, supple, no stridor. [] Cardiovascular: Heart rate regular rhythm, no murmur [] Lungs & Thorax: Bilateral breath sounds clear to auscultation [] Abdomen: Bowel sounds normal, soft, no tenderness, no masses, no pulsatile masses. [] Skin: Warm, dry, no erythema, no rash. [] Back: No tenderness, no CVA tenderness. [] Extremities: No tenderness, no cyanosis, no clubbing, ROM intact, no edema. [] Neurologic: Alert and oriented X 3, normal motor function, normal sensory function, no focal deficits noted. [] Psychologic: Affect normal, judgement normal, mood normal. [] EKG: EKG: [] Radiology/Procedures: Radiology/Procedures: [] Heart Score: C/O Chest Pain: N/A Risk Factors: Risk Factors: DM, Current or recent (<one month) smoker, HTN, HLP, family history of CAD, obesity. Risk Scores: Score 0 - 3: 2.5% MACE over next 6 weeks - Discharge Home Score 4 - 6: 20.3% MACE over next 6 weeks - Admit for Clinical Observation Score 7 - 10: 72.7% MACE over next 6 weeks - Early Invasive Strategies Course & Med Decision Making: Course & Med Decision Making Pertinent Labs and Imaging studies reviewed. (See chart for details) The patient's labs are unremarkable. We have given her a liter normal saline and 4 mg of Zofran. She has had no further vomiting. Her urinalysis has some blood, but is negative for infection. She is not . She is feeling better at this time. She is stable for discharge. [] Dragon Disclaimer: Dragon Disclaimer: This electronic medical record was generated, in whole or in part, using a voice recognition dictation system. Departure Departure: Impression: Primary Impression: Nausea & vomiting Qualified Codes: R11.2 - Nausea with vomiting, unspecified Disposition: HOME / SELF CARE / HOMELESS Condition: IMPROVED Referrals: PCP,SAVANAH (PCP) Patient Instructions: Nausea and Vomiting, [id number] Scripts Ondansetron (ONDANSETRON ODT) 4 Mg Tab.rapdis 1 TAB PO PRN Q6-8HRS PRN for VOMITING, #16 TAB Prov: AMBROSE DOUGLAS DO 01/11/21 AMBROSE DOUGLAS DO Jan 11, 2021 06:59
[2021-01-11] MEDS ORDERED: ONDANSETRON PF 4 MG/2 ML VIAL. IVP ONE (07:30)
[2021-01-11] MEDS ORDERED: IV NORMAL SALINE 1,000ML 1,000 ML IV ONE (07:30)
[2021-01-11 07:46] LABS: BASO # 0.1 x10^3/uL (0.0-0.2); BASO % 1 % (0-3); EOS # 0.4 x10^3/uL (0.0-0.7); EOS % 6 % (0-3); HEMATOCRIT 40.7 % (36.0-47.0); HEMOGLOBIN 13.9 g/dL (12.0-15.5); LYMPH # 2.4 x10^3/uL (1.0-4.8); LYMPH % 35 % (24-48); MEAN CORPUSCULAR HEMOGLOBIN 33 pg (25-35); MEAN CORPUSCULAR HGB CONC 34 g/dL (31-37); MEAN CORPUSCULAR VOLUME 95 fL (79-100); MONO # 0.5 x10^3/uL (0.0-1.1); MONO % 7 % (0-9); NEUT # 3.6 x10^3uL (1.8-7.7); NEUT % 52 % (31-73); PLATELET COUNT 264 x10^3/uL (140-400); RED BLOOD COUNT 4.28 x10^6/uL (3.50-5.40); WHITE BLOOD COUNT 6.9 x10^3/uL (4.0-11.0)
[2021-01-11 07:47] LABS: CALCIUM 8.7 mg/dL (8.5-10.1); CREATININE 0.9 mg/dL (0.6-1.0); GFR 93.1; POTASSIUM 3.6 mmol/L (3.5-5.1)
[2021-01-11 07:52] LABS: ALBUMIN 3.9 g/dL (3.4-5.0); ALBUMIN/GLOBULIN RATIO 1.2 (1.0-1.7); TOTAL BILIRUBIN 0.3 mg/dL (0.2-1.0); TOTAL PROTEIN 7.1 g/dL (6.4-8.2)
[2021-01-11 08:04] LABS: BILIRUBIN,URINE NEG (NEG); CLARITY,URINE CLEAR; COLOR,URINE YELLOW; GLUCOSE,URINE NEG (NEG); NITRITE,URINE NEG (NEG); UROBILINOGEN,URINE 0.2 mg/dL (0.2 mg/dL)
[2021-01-11 08:09] LABS: BACTERIA,URINE FEW /HPF (0-FEW); SQUAMOUS EPITHELIAL CELL,UR MOD /LPF
[2021-01-11 08:30] VITALS: BP 116/57
[2021-01-11] MEDS ORDERED: ONDA4TAB12 PO (08:37)
== END 2021-01-11 08:40 | disposition home or self-care (01) ==
LOC: ER 06:29
DX: R11.2 Nausea with vomiting, unspecified (principal); F17.210 Nicotine dependence, cigarettes, uncomplicated; F12.10 Cannabis abuse, uncomplicated; Z88.6 Allergy status to analgesic agent
CPT/HCPCS: 36415; 80053; 81001; 81025; 85025; 87086; 96361; 96374; 99283; J2405; J7030; 87147